=== PATIENT | male | born 1955 | race Caucasian/White ===

== ENCOUNTER 2020-12-15 09:12 | Emergency (ER) | payer OTHER ==
[~2020-12-15] VITALS: Ht 172.7 cm; Wt 83.0 kg
[2020-12-15 09:14] VITALS: BP 164/81
[2020-12-15] MEDS ORDERED: FLUORESCEIN SOD 1 MG TEST STRIP RIGHTEYE ONE (10:00)
[2020-12-15] MEDS ORDERED: TETRACAINE HCL 0.5% OPTH(EYE) SOLN 4ML RIGHTEYE ONE (10:00)
== END 2020-12-15 11:27 | disposition home or self-care (01) ==
LOC: ER 09:12
DX: S05.01XA Injury of conjunctiva and corneal abrasion without foreign body, right eye, initial encounter (principal); X58.XXXA Exposure to other specified factors, initial encounter; Y93.89 Activity, other specified; Y92.89 Other specified places as the place of occurrence of the external cause; Y99.8 Other external cause status

== ENCOUNTER 2022-12-31 17:10 | Inpatient (IN) | payer OTHER ==
[~2022-12-31] VITALS: Ht 177.8 cm; Wt 92.0 kg
[2022-12-31 18:17] LABS: Basophils # (auto) 0.1 10 ^3/uL (0-0.2); Basophils % (auto) 0.7 % (0.0-2.0); Eosinophils # (auto) 0.1 10 ^3/uL (0-0.8); Eosinophils % (auto) 0.8 % (0.0-7.0); Hemoglobin 13.6 g/dL (13.5-17.5); Lymphocytes # (auto) 1.6 10 ^3/uL (0.4-5.4); Lymphocytes % (auto) 18.6 % (10.0-50.0); Mean Corpuscular Hemoglobin 27.5 pg (28.0-32.0); Mean Corpuscular Hgb Conc. 33.1 g/dL (32.0-36.0); Monocytes # (auto) 0.6 10 ^3/uL (0-1.3); Monocytes % (auto) 6.6 % (0.0-12.0); Neutrophils # (auto) 6.3 10 ^3/uL (1.6-8.6); Neutrophils % (auto) 73.3 % (37.0-80.0); Nucleated Red Blood Cells % 0.2 %; Red Blood Cells 4.95 10^6/uL (4.5-5.90); Red Cell Distribution Width 14.9 % (11.8-14.3); White Blood Cell 8.6 10^3/uL (4.4-10.8)
[2022-12-31 18:41] LABS: INR 1.23 (0.9-1.15); Partial Thromboplastin Time 30.5 sec (24.6-33.4)
[2022-12-31 18:45] LABS: Albumin 3.9 g/dL (3.4-5.0); BUN/Creatinine Ratio 18.7 (10.0-20.0); Calcium 9.5 mg/dL (8.5-10.1); Potassium 4.3 mmol/L (3.5-5.1)
[2022-12-31 18:48] LABS: Bilirubin, Total 0.7 mg/dL (0.2-1.0); Total Protein 7.3 g/dL (6.4-8.2)
[2022-12-31] MEDS ORDERED: HEPARIN SODIUM (PORCINE) 5000 UNITS/ML 1ML VIAL IV ONE (20:45)
[2022-12-31] MEDS ORDERED: ASPirin 325 MG TAB PO ONE (20:45)
[2022-12-31] MEDS ORDERED: FUROSEMIDE 20 MG/2 ML VIAL IV ONE (20:45)
[2022-12-31 21:41] LABS: INR 1.31 (0.9-1.15); Partial Thromboplastin Time 30.4 sec (24.6-33.4)
[2022-12-31 21:43] LABS: Basophils # (auto) 0 10 ^3/uL (0-0.2); Basophils % (auto) 0.5 % (0.0-2.0); Eosinophils # (auto) 0.1 10 ^3/uL (0-0.8); Eosinophils % (auto) 1.1 % (0.0-7.0); Hematocrit 38.4 % (41.0-53.0); Hemoglobin 12.6 g/dL (13.5-17.5); Lymphocytes # (auto) 2.1 10 ^3/uL (0.4-5.4); Lymphocytes % (auto) 23.5 % (10.0-50.0); Mean Corpuscular Hemoglobin 27.1 pg (28.0-32.0); Mean Corpuscular Hgb Conc. 32.7 g/dL (32.0-36.0); Monocytes # (auto) 0.7 10 ^3/uL (0-1.3); Monocytes % (auto) 7.5 % (0.0-12.0); Neutrophils # (auto) 6.2 10 ^3/uL (1.6-8.6); Neutrophils % (auto) 67.4 % (37.0-80.0); Nucleated Red Blood Cells % 0.1 %; Red Blood Cells 4.63 10^6/uL (4.5-5.90); Red Cell Distribution Width 15.1 % (11.8-14.3); White Blood Cell 9.1 10^3/uL (4.4-10.8)
[2023-01-01] MEDS: HEPARIN DRIP/D5W 100UNITS/ML 250 ML IV SCH ×4 (00:13→18:43)
[2023-01-01] MEDS ORDERED: HYDROcodone-ACET 5/325MG TAB PO PRN (00:45)
[2023-01-01] MEDS ORDERED: DEXTROSE (50%) 50ML SYRG IV PRN (00:45)
[2023-01-01] MEDS ORDERED: NITROGLYCERIN 0.4 MG SL TAB SL PRN (00:45)
[2023-01-01] MEDS ORDERED: ACETAMINOPHEN 325 MG TAB PO PRN (00:45)
[2023-01-01] MEDS ORDERED: MORPHINE SULFATE INJ 2 MG/ml SYRG IV PRN ×2 (00:45)
[2023-01-01] MEDS ORDERED: ONDANSETRON HCL 4 MG/2 ML VIAL IV PRN (00:45)
[2023-01-01] MEDS ORDERED: DOCUSATE SOD 100 MG CAP PO PRN (00:45)
[2023-01-01 01:06] LABS: Urine Bacteria NONE SEEN /hpf (None Seen); Urine Blood Negative /uL (Negative); Urine Specific Gravity 1.024 (1.001-1.035); Urine WBC <1 /hpf (0 - 3)
[2023-01-01 05:58] LABS: Basophils # (auto) 0.1 10 ^3/uL (0-0.2); Basophils % (auto) 0.6 % (0.0-2.0); Eosinophils # (auto) 0.1 10 ^3/uL (0-0.8); Eosinophils % (auto) 1.2 % (0.0-7.0); Hematocrit 40.4 % (41.0-53.0); Hemoglobin 13.4 g/dL (13.5-17.5); Lymphocytes # (auto) 1.6 10 ^3/uL (0.4-5.4); Lymphocytes % (auto) 15.6 % (10.0-50.0); Mean Corpuscular Hemoglobin 27.7 pg (28.0-32.0); Mean Corpuscular Hgb Conc. 33.2 g/dL (32.0-36.0); Mean Corpuscular Volume 83.2 fL (80.0-100.0); Monocytes # (auto) 0.7 10 ^3/uL (0-1.3); Monocytes % (auto) 6.5 % (0.0-12.0); Neutrophils # (auto) 8.1 10 ^3/uL (1.6-8.6); Neutrophils % (auto) 76.1 % (37.0-80.0); Nucleated Red Blood Cells % 0.2 %; Red Blood Cells 4.86 10^6/uL (4.5-5.90); Red Cell Distribution Width 14.8 % (11.8-14.3); White Blood Cell 10.6 10^3/uL (4.4-10.8)
[2023-01-01] MEDS: SODIUM CHLOR 0.9% PF (SALINE LOCK) 10ML VIAL/SYR IV SCH ×3 (06:00→22:00)
[2023-01-01 06:33] LABS: Potassium 4.5 mmol/L (3.5-5.1)
[2023-01-01 06:35] LABS: Albumin 3.6 g/dL (3.4-5.0); BUN/Creatinine Ratio 18.7 (10.0-20.0); Calcium 9.5 mg/dL (8.5-10.1)
[2023-01-01 06:53] LABS: Bilirubin, Total 0.8 mg/dL (0.2-1.0); Total Protein 7.3 g/dL (6.4-8.2)
[2023-01-01 07:00] LABS: INR 1.29 (0.9-1.15)
[2023-01-01] MEDS: ACCU-CHEK COMFORT CURVE STRIP VI SCH ×3 (07:11→17:27)
[2023-01-01] MEDS: InsuLIN REG 1unit/0.01ml Soln (100units/ml) SC SCH ×3 (07:13→17:33)
[2023-01-01] MEDS: ASPirin 81 mg TAB PO SCH (10:44)
[2023-01-01] MEDS: CARVEDILOL 3.125 MG TAB PO SCH (10:44)
[2023-01-01] MEDS: FUROSEMIDE 40 MG/4 ML VIAL IV SCH (10:44)
[2023-01-01 12:04] LABS: INR 1.26 (0.9-1.15); Partial Thromboplastin Time 58.5 sec (24.6-33.4)
[2023-01-01 18:21] LABS: INR 1.29 (0.9-1.15); Partial Thromboplastin Time 50.6 sec (24.6-33.4)
[2023-01-02] VITALS (13 sets, daily range): BP systolic 102–151; BP diastolic 58–94
[2023-01-02 00:22] LABS: INR 1.24 (0.9-1.15); Partial Thromboplastin Time 53.8 sec (24.6-33.4)
[2023-01-02] MEDS ORDERED: TEMAZEPAM 15 MG CAP PO ONE (00:25)
[2023-01-02] MEDS: InsuLIN REG 1unit/0.01ml Soln (100units/ml) SC SCH ×5 (00:36→21:22)
[2023-01-02] MEDS: CARVEDILOL 3.125 MG TAB PO SCH ×3 (00:36→23:24)
[2023-01-02] MEDS: ATORVASTATIN 20 MG TAB PO SCH ×2 (00:37→21:24)
[2023-01-02] MEDS: ACCU-CHEK COMFORT CURVE STRIP VI SCH ×5 (00:37→22:00)
[2023-01-02] MEDS: HEPARIN DRIP/D5W 100UNITS/ML 250 ML IV SCH (00:47)
[2023-01-02 05:11] LABS: Basophils # (auto) 0.1 10 ^3/uL (0-0.2); Basophils % (auto) 0.8 % (0.0-2.0); Eosinophils # (auto) 0.1 10 ^3/uL (0-0.8); Eosinophils % (auto) 1.1 % (0.0-7.0); Hematocrit 41.5 % (41.0-53.0); Lymphocytes # (auto) 2.1 10 ^3/uL (0.4-5.4); Mean Corpuscular Hemoglobin 27.7 pg (28.0-32.0); Mean Corpuscular Hgb Conc. 33.8 g/dL (32.0-36.0); Mean Corpuscular Volume 81.9 fL (80.0-100.0); Monocytes # (auto) 0.7 10 ^3/uL (0-1.3); Monocytes % (auto) 6.6 % (0.0-12.0); Neutrophils # (auto) 7.7 10 ^3/uL (1.6-8.6); Neutrophils % (auto) 71.5 % (37.0-80.0); Nucleated Red Blood Cells % 0.4 %; Red Blood Cells 5.07 10^6/uL (4.5-5.90); Red Cell Distribution Width 14.6 % (11.8-14.3); White Blood Cell 10.8 10^3/uL (4.4-10.8)
[2023-01-02 05:40] LABS: Albumin 3.7 g/dL (3.4-5.0); Calcium 9.5 mg/dL (8.5-10.1)
[2023-01-02 05:42] LABS: BUN/Creatinine Ratio 22.1 (10.0-20.0)
[2023-01-02 05:44] LABS: Total Protein 7.6 g/dL (6.4-8.2)
[2023-01-02] MEDS: SODIUM CHLOR 0.9% PF (SALINE LOCK) 10ML VIAL/SYR IV SCH ×3 (06:27→22:00)
[2023-01-02 06:38] LABS: INR 1.23 (0.9-1.15); Partial Thromboplastin Time 28.8 sec (24.6-33.4)
[2023-01-02] MEDS ORDERED: HEPARIN SODIUM (PORCINE) 5000 UNITS/ML 1ML VIAL ONE ×2 (08:33→10:23)
[2023-01-02] MEDS ORDERED: HEPARIN SODIUM (PORCINE) 5000 UNITS/ML 1ML VIAL IV ONE (08:35)
[2023-01-02] MEDS ORDERED: HEPARIN DRIP/D5W 100UNITS/ML 250 ML IV SCH (09:00)
[2023-01-02] MEDS ORDERED: LIDOCAINE 2%HCL (LOCAL ANESTH.) INJ 10ml MDV ONE (10:09)
[2023-01-02] MEDS ORDERED: IODIXANOL 320MG/ML 100ML BTL IV ONE (10:09)
[2023-01-02] MEDS ORDERED: MIDAZOLAM HCL 2MG/2ML 2ml VIAL (1mg/ml) ONE (10:23)
[2023-01-02] MEDS ORDERED: fentaNYL CITRATE 100 MCG/2 ML VL ONE (10:23)
[2023-01-02] MEDS ORDERED: SODIUM CHL 0.9% 0 ML ONE (10:23)
[2023-01-02] MEDS ORDERED: VERAPAMIL 2.5MG/ML INJ 2ML VIAL IV ONE (10:23)
[2023-01-02] MEDS ORDERED: ANGIOMAX 250 MG VIAL IV ONE (10:23)
[2023-01-02] MEDS: FUROSEMIDE 40 MG/4 ML VIAL IV SCH (13:46)
[2023-01-02] MEDS: ASPirin 81 mg TAB PO SCH (13:54)
[2023-01-02] MEDS ORDERED: ATOR20TA50 (16:41)
[2023-01-02] MEDS ORDERED: PIOG1TAB37 PO (16:41)
[2023-01-02] MEDS ORDERED: METF-372 (16:41)
[2023-01-02] MEDS ORDERED: BENA20TA14 (16:41)
[2023-01-02] MEDS ORDERED: INSU32MI SC (16:41)
[2023-01-02] MEDS ORDERED: GABA-339 PO (16:41)
[2023-01-02] MEDS ORDERED: GLYB5TAB8 PO (16:41)
[2023-01-03] VITALS (8 sets, daily range): BP systolic 108–134; BP diastolic 72–90
[2023-01-03] MEDS: SODIUM CHLOR 0.9% PF (SALINE LOCK) 10ML VIAL/SYR IV SCH ×3 (05:12→22:55)
[2023-01-03 05:57] LABS: INR 1.24 (0.9-1.15); Partial Thromboplastin Time 29.2 sec (24.6-33.4)
[2023-01-03 06:06] LABS: BUN/Creatinine Ratio 23.8 (10.0-20.0); Calcium 9.1 mg/dL (8.5-10.1); Potassium 3.6 mmol/L (3.5-5.1)
[2023-01-03 06:08] LABS: Basophils # (auto) 0 10 ^3/uL (0-0.2); Basophils % (auto) 0.4 % (0.0-2.0); Eosinophils # (auto) 0.2 10 ^3/uL (0-0.8); Eosinophils % (auto) 1.9 % (0.0-7.0); Hematocrit 38.3 % (41.0-53.0); Hemoglobin 13.1 g/dL (13.5-17.5); Lymphocytes # (auto) 1.6 10 ^3/uL (0.4-5.4); Lymphocytes % (auto) 19.1 % (10.0-50.0); Mean Corpuscular Hgb Conc. 34.1 g/dL (32.0-36.0); Mean Corpuscular Volume 81.9 fL (80.0-100.0); Monocytes # (auto) 0.7 10 ^3/uL (0-1.3); Monocytes % (auto) 7.8 % (0.0-12.0); Neutrophils % (auto) 70.8 % (37.0-80.0); Nucleated Red Blood Cells % 0.1 %; Red Blood Cells 4.68 10^6/uL (4.5-5.90); Red Cell Distribution Width 15.1 % (11.8-14.3); White Blood Cell 8.5 10^3/uL (4.4-10.8)
[2023-01-03] MEDS: ACCU-CHEK COMFORT CURVE STRIP VI SCH ×4 (06:29→22:55)
[2023-01-03] MEDS: InsuLIN REG 1unit/0.01ml Soln (100units/ml) SC SCH ×4 (06:29→22:05)
[2023-01-03] MEDS ORDERED: VANCOMYCIN 1GM/250ML 250 ML IV ONE (09:00)
[2023-01-03] MEDS: FUROSEMIDE 40 MG/4 ML VIAL IV SCH (10:00)
[2023-01-03] MEDS ORDERED: LIDOCAINE 2%HCL (LOCAL ANESTH.) INJ 20ML MDV ONE (10:22)
[2023-01-03] MEDS ORDERED: VANCOMYCIN HCL 1000 MG VL ONE ×2 (10:25→10:29)
[2023-01-03] MEDS ORDERED: fentaNYL CITRATE 100 MCG/2 ML VL ONE (10:25)
[2023-01-03] MEDS ORDERED: MIDAZOLAM HCL 2MG/2ML 2ml VIAL (1mg/ml) ONE (10:26)
[2023-01-03] MEDS ORDERED: IOHEXOL 350 MG/ML 100ML IJ ONE (10:35)
[2023-01-03] MEDS: ASPirin 81 mg TAB PO SCH (13:30)
[2023-01-03] MEDS: CARVEDILOL 3.125 MG TAB PO SCH ×2 (13:30→22:55)
[2023-01-03] MEDS: ceFAZolin 1GM/50ML 50 ML IV SCH ×2 (13:30→19:45)
[2023-01-03] MEDS: ATORVASTATIN 20 MG TAB PO SCH (22:55)
[2023-01-04] MEDS: ceFAZolin 1GM/50ML 50 ML IV SCH ×3 (00:13→12:00)
[2023-01-04 01:01] VITALS: BP 126/65
[2023-01-04 05:27] VITALS: BP 122/74
[2023-01-04] MEDS: InsuLIN REG 1unit/0.01ml Soln (100units/ml) SC SCH ×2 (06:05→13:00)
[2023-01-04] MEDS: ACCU-CHEK COMFORT CURVE STRIP VI SCH ×2 (06:05→11:54)
[2023-01-04] MEDS: SODIUM CHLOR 0.9% PF (SALINE LOCK) 10ML VIAL/SYR IV SCH ×2 (06:06→14:15)
[2023-01-04 09:00] VITALS: BP 122/75
[2023-01-04] MEDS: ASPirin 81 mg TAB PO SCH (09:47)
[2023-01-04] MEDS: CARVEDILOL 3.125 MG TAB PO SCH (09:49)
[2023-01-04] MEDS: FUROSEMIDE 40 MG/4 ML VIAL IV SCH (09:50)
[2023-01-04] MEDS ORDERED: CAR3125T PO (11:07)
[2023-01-04] MEDS ORDERED: FURO1TAB31 PO (11:07)
[2023-01-04] MEDS ORDERED: DOXY-340 PO (11:09)
[2023-01-04] MEDS ORDERED: ASPI1TAB20 PO (11:09)
[2023-01-04 12:15] VITALS: BP 122/75
[2023-01-04 13:00] VITALS: BP 138/67
[2023-01-04] MEDS ORDERED: VANCOMYCIN 1GM/250ML 250 ML IV ONE (13:00)
== END 2023-01-04 14:11 | disposition home or self-care (01) | DRG 223 ==
LOC: ER 17:10 → TELE 01-01 00:44 → TELE-WESTW 01-02 16:16
PROVIDERS: ADMIT Nurse Practitioner Family; ATTEND Family Medicine
PROC: 4A023N7 Measurement of Cardiac Sampling and Pressure, Left Heart, Percutaneous Approach (ICD-10-PCS; 2023-01-02)
PROC: B211YZZ Fluoroscopy of Multiple Coronary Arteries using Other Contrast (ICD-10-PCS; 2023-01-02)
PROC: B215YZZ Fluoroscopy of Left Heart using Other Contrast (ICD-10-PCS; 2023-01-02)
PROC: 4A133B1 Monitoring of Arterial Pressure, Peripheral, Percutaneous Approach (ICD-10-PCS; 2023-01-02)
PROC: 4A133J1 Monitoring of Arterial Pulse, Peripheral, Percutaneous Approach (ICD-10-PCS; 2023-01-02)
PROC: 0JH608Z Insertion of Defibrillator Generator into Chest Subcutaneous Tissue and Fascia, Open Approach (ICD-10-PCS; principal; 2023-01-03)
PROC: 02HK3KZ Insertion of Defibrillator Lead into Right Ventricle, Percutaneous Approach (ICD-10-PCS; 2023-01-03)
PROC: B517YZZ Fluoroscopy of Left Subclavian Vein using Other Contrast (ICD-10-PCS; 2023-01-03)
DX: I21.4 Non-ST elevation (NSTEMI) myocardial infarction (principal); I42.0 Dilated cardiomyopathy; I11.0 Hypertensive heart disease with heart failure; E11.65 Type 2 diabetes mellitus with hyperglycemia; E78.00 Pure hypercholesterolemia, unspecified; I25.10 Atherosclerotic heart disease of native coronary artery without angina pectoris; I50.9 Heart failure, unspecified; I25.2 Old myocardial infarction
CPT/HCPCS: 33249; 36415; 71045; 80048; 80053; 81001; 82962; 83036; 83880; 84484; 85025; 85610; 85730; 86850; 86900; 86901; 93005; 93458; 96374; 96375; 99152; 99291; G0378; J0690; J1815; J2001; J2250; Q9967

== ENCOUNTER 2023-06-02 17:10 | Inpatient (IN) | payer OTHER ==
[~2023-06-02] VITALS: Ht 172.7 cm; Wt 85.1 kg
[~2023-06-02 17:10] MED LIST: ASPI1TAB20 PO; ATOR20TA50; BENA-36; CAR3125T PO; DOXY1CAP57 PO; FURO1TAB31 PO; GABA-339 PO; GLYB5TAB8 PO; INSU32MI SC; METF-372; PIOG1TAB37 PO
[2023-06-02 17:41] LABS: Basophils # (auto) 0.1 10 ^3/uL (0-0.2); Basophils % (auto) 0.7 % (0.0-2.0); Eosinophils # (auto) 0.1 10 ^3/uL (0-0.8); Eosinophils % (auto) 0.7 % (0.0-7.0); Hematocrit 37.8 % (41.0-53.0); Hemoglobin 12.6 g/dL (13.5-17.5); Lymphocytes # (auto) 1.6 10 ^3/uL (0.4-5.4); Mean Corpuscular Hemoglobin 28.3 pg (28.0-32.0); Mean Corpuscular Hgb Conc. 33.3 g/dL (32.0-36.0); Monocytes % (auto) 8.6 % (0.0-12.0); Neutrophils # (auto) 8.8 10 ^3/uL (1.6-8.6); Nucleated Red Blood Cells % 0.1 %; Red Blood Cells 4.44 10^6/uL (4.5-5.90); Red Cell Distribution Width 15.3 % (11.8-14.3); White Blood Cell 11.5 10^3/uL (4.4-10.8)
[2023-06-02 17:58] LABS: Alanine Aminotransferase 44 U/L (7-40); Albumin 4.4 g/dL (3.2-4.8); Alkaline Phosphatase 131 U/L (46-116); Anion Gap 9 (5-15); Aspartate Aminotransferase 26 U/L (13-40); BUN/Creatinine Ratio 13.4 (10.0-20.0); Blood Urea Nitrogen 17 mg/dL (9-23); Calcium 9.7 mg/dL (8.7-10.4); Carbon Dioxide 26 mmol/L (20-30); Chloride 103 mmol/L (98-107); Glucose 245 mg/dL (74-106); Magnesium 1.8 mg/dL (1.6-2.6); Potassium 4.2 mmol/L (3.5-5.1); Sodium 138 mmol/L (136-145); Total Protein 7.3 g/dL (5.7-8.2)
[2023-06-02 19:34] LABS: INR 1.31 (0.9-1.15); Partial Thromboplastin Time 30.4 SEC (24.5-34.5); Prothrombin Time 13.5 sec (9.3-11.8)
[2023-06-02 20:14] VITALS: PULSE 81; RESP 20; O2SAT 94
[2023-06-02] MEDS ORDERED: FUROSEMIDE 20 MG/2 ML VIAL IV ONE (20:15)
[2023-06-02] MEDS ORDERED: IOHEXOL 350 MG/ML 100ML IJ ONE (20:18)
[2023-06-02] MEDS ORDERED: ASPirin 325 MG TAB PO ONE (20:30)
[2023-06-02 21:46] LABS: COVID19 ANTIGEN SOFIA FIA NEGATIVE (NEGATIVE); Rapid Influenza A Negative (Negative); Rapid Influenza B Negative (Negative)
[2023-06-02] MEDS ORDERED: MORPHINE SULFATE INJ 2 MG/ml SYRG IV PRN (22:30)
[2023-06-02] MEDS ORDERED: NITROGLYCERIN 0.4 MG SL TAB SL PRN (22:30)
[2023-06-02 22:43] LABS: Amphetamine Screen, Urine Neg (NEGATIVE); Barbiturate Scree,Urine Neg (NEGATIVE); Benzodiazephine Screen, Urine Neg (NEGATIVE); Cocaine Screen, Urine Neg (NEGATIVE)
[2023-06-02 22:44] LABS: Cannabinoid Screen, Urine Neg (NEGATIVE); Opiate Scree,Urine Neg (NEGATIVE); Phencyclidine Screen, Urine Neg (NEGATIVE)
[2023-06-02] MEDS ORDERED: ONDANSETRON HCL 4 MG/2 ML VIAL IV PRN (23:00)
[2023-06-02] MEDS ORDERED: DEXTROSE (50%) 50ML SYRG IV ONE (23:00)
[2023-06-02 23:01] LABS: Urine Bacteria NONE SEEN /hpf (None Seen); Urine Blood Negative /uL (Negative); Urine Clarity Clear (Clear); Urine Color Colorless (Yellow); Urine Protein, UAD Negative (Negative); Urine Specific Gravity 1.022 (1.001-1.035); Urine Urobilinogen Normal (Negative); Urine WBC <1 /hpf (0 - 3); Urine pH 5.5 (5.0-8.0)
[2023-06-02 23:06] VITALS: BP 151/74; PULSE 71; RESP 20; O2SAT 99
[2023-06-02 23:33] VITALS: PULSE 63; RESP 18; O2SAT 99
[2023-06-02 23:42] VITALS: PULSE 60; RESP 18; O2SAT 100
[2023-06-02] MEDS: ALBUTEROL SULF 2.5 MG/0.5ML(0.5%) NEB SOLN NEB SCH (23:45)
[2023-06-02] MEDS: IPRATROPIUM BROM 0.5 MG/2.5ML INH SOL NEB SCH (23:45)
[2023-06-03] VITALS (12 sets, daily range): BP systolic 128–153; BP diastolic 72–90; PULSE 69–94; RESP 13–24; TEMP 97.5–97.8; O2SAT 92–100
[2023-06-03] MEDS: ALBUTEROL SULF 2.5 MG/0.5ML(0.5%) NEB SOLN NEB SCH ×3 (05:41→17:54)
[2023-06-03] MEDS: IPRATROPIUM BROM 0.5 MG/2.5ML INH SOL NEB SCH ×3 (05:41→17:54)
[2023-06-03] MEDS: FUROSEMIDE 40 MG/4 ML VIAL IV SCH ×3 (06:41→22:05)
[2023-06-03] MEDS ORDERED: ACCU-CHEK COMFORT CURVE STRIP VI ONE ×2 (07:00→22:00)
[2023-06-03] MEDS ORDERED: InsuLIN REG 1unit/0.01ml Soln (100units/ml) SC ONE (07:00)
[2023-06-03 07:07] LABS: Basophils # (auto) 0.1 10 ^3/uL (0-0.2); Basophils % (auto) 0.6 % (0.0-2.0); Eosinophils # (auto) 0.1 10 ^3/uL (0-0.8); Eosinophils % (auto) 1.1 % (0.0-7.0); Hematocrit 37.5 % (41.0-53.0); Hemoglobin 12.6 g/dL (13.5-17.5); Lymphocytes # (auto) 1.4 10 ^3/uL (0.4-5.4); Lymphocytes % (auto) 14.9 % (10.0-50.0); Mean Corpuscular Hemoglobin 28.6 pg (28.0-32.0); Mean Corpuscular Hgb Conc. 33.6 g/dL (32.0-36.0); Mean Corpuscular Volume 85.2 fL (80.0-100.0); Monocytes # (auto) 0.8 10 ^3/uL (0-1.3); Monocytes % (auto) 8.6 % (0.0-12.0); Neutrophils # (auto) 7.2 10 ^3/uL (1.6-8.6); Neutrophils % (auto) 74.8 % (37.0-80.0); Nucleated Red Blood Cells % 0.1 %; Red Cell Distribution Width 14.8 % (11.8-14.3); White Blood Cell 9.7 10^3/uL (4.4-10.8)
[2023-06-03 08:07] LABS: Alanine Aminotransferase 40 U/L (7-40); Albumin 4.4 g/dL (3.2-4.8); Alkaline Phosphatase 111 U/L (46-116); Aspartate Aminotransferase 23 U/L (13-40); BUN/Creatinine Ratio 15.6 (10.0-20.0); Bilirubin, Total 1.2 mg/dL (0.2-1.0); Blood Urea Nitrogen 17 mg/dL (9-23); Calcium 9.2 mg/dL (8.5-10.1); Carbon Dioxide 26 mmol/L (20-30); Glucose 235 mg/dL (74-106); Total Protein 7.2 g/dL (5.7-8.2)
[2023-06-03 08:46] LABS: Anion Gap 8 (5-15); Chloride 104 mmol/L (98-107); Potassium 3.8 mmol/L (3.5-5.1); Sodium 138 mmol/L (136-145)
[2023-06-03] MEDS ORDERED: INSU100I67 SC (16:09)
[2023-06-03] MEDS ORDERED: DEXTROSE (50%) 50ML SYRG IV ONE (18:30)
[2023-06-03] MEDS ORDERED: INSULIN LANTUS (GLARGINE) 1 /0.01ml (100units/ml) SC SCH (22:00)
[2023-06-04] VITALS (17 sets, daily range): BP systolic 120–144; BP diastolic 74–84; PULSE 58–98; RESP 14–20; TEMP 97.6–98.2; O2SAT 94–100
[2023-06-04] MEDS: ALBUTEROL SULF 2.5 MG/0.5ML(0.5%) NEB SOLN NEB SCH ×4 (00:06→20:21)
[2023-06-04] MEDS: IPRATROPIUM BROM 0.5 MG/2.5ML INH SOL NEB SCH ×4 (00:06→20:21)
[2023-06-04 05:44] LABS: Basophils # (auto) 0.1 10 ^3/uL (0-0.2); Basophils % (auto) 0.6 % (0.0-2.0); Eosinophils # (auto) 0.1 10 ^3/uL (0-0.8); Eosinophils % (auto) 1.1 % (0.0-7.0); Hematocrit 39.4 % (41.0-53.0); Hemoglobin 13.6 g/dL (13.5-17.5); Lymphocytes # (auto) 1.4 10 ^3/uL (0.4-5.4); Lymphocytes % (auto) 13.2 % (10.0-50.0); Mean Corpuscular Hgb Conc. 34.4 g/dL (32.0-36.0); Mean Corpuscular Volume 84.1 fL (80.0-100.0); Monocytes # (auto) 0.8 10 ^3/uL (0-1.3); Monocytes % (auto) 7.8 % (0.0-12.0); Neutrophils % (auto) 77.3 % (37.0-80.0); Red Blood Cells 4.68 10^6/uL (4.5-5.90); Red Cell Distribution Width 14.7 % (11.8-14.3); White Blood Cell 10.4 10^3/uL (4.4-10.8)
[2023-06-04 06:08] LABS: Alanine Aminotransferase 37 U/L (7-40); Albumin 4.5 g/dL (3.2-4.8); Alkaline Phosphatase 125 U/L (46-116); Anion Gap 9 (5-15); Aspartate Aminotransferase 16 U/L (13-40); BUN/Creatinine Ratio 14.7 (10.0-20.0); Blood Urea Nitrogen 19 mg/dL (9-23); Calcium 9.7 mg/dL (8.7-10.4); Carbon Dioxide 29 mmol/L (20-30); Chloride 99 mmol/L (98-107); Glucose 282 mg/dL (74-106); Magnesium 1.7 mg/dL (1.6-2.6); Potassium 3.5 mmol/L (3.5-5.1); Sodium 137 mmol/L (136-145)
[2023-06-04 06:09] LABS: Bilirubin, Total 1.1 mg/dL (0.2-1.0); Total Protein 7.5 g/dL (5.7-8.2)
[2023-06-04] MEDS: FUROSEMIDE 40 MG/4 ML VIAL IV SCH ×3 (06:12→21:47)
[2023-06-04] MEDS: ASPirin-EC 81 mg tab PO SCH (09:06)
[2023-06-04] MEDS ORDERED: DEXTROSE (50%) 50ML SYRG IV PRN (11:00)
[2023-06-04] MEDS: ACCU-CHEK COMFORT CURVE STRIP VI SCH ×3 (11:59→21:57)
[2023-06-04] MEDS: InsuLIN REG 1unit/0.01ml Soln (100units/ml) SC SCH ×2 (12:25→16:43)
[2023-06-04] MEDS: GABAPENTIN 100 MG CAP PO SCH ×2 (15:36→21:47)
[2023-06-04] MEDS: INSULIN LISPRO (HUMAN) 100 UNITS/ML ML SC SCH (17:50)
[2023-06-04] MEDS ORDERED: INSULIN LANTUS (GLARGINE) 1 /0.01ml (100units/ml) SC SCH (22:00)
[2023-06-04] MEDS ORDERED: InsuLIN REG 1unit/0.01ml Soln (100units/ml) SC SCH (22:00)
[2023-06-05] VITALS (10 sets, daily range): BP systolic 116–134; BP diastolic 68–84; PULSE 65–92; RESP 14–20; TEMP 36.8; O2SAT 96–100
[2023-06-05] MEDS: ALBUTEROL SULF 2.5 MG/0.5ML(0.5%) NEB SOLN NEB SCH ×2 (00:10→07:37)
[2023-06-05] MEDS: IPRATROPIUM BROM 0.5 MG/2.5ML INH SOL NEB SCH ×2 (00:10→07:37)
[2023-06-05] MEDS: GABAPENTIN 100 MG CAP PO SCH (06:46)
[2023-06-05] MEDS: FUROSEMIDE 40 MG/4 ML VIAL IV SCH (06:46)
[2023-06-05] MEDS: INSULIN LISPRO (HUMAN) 100 UNITS/ML ML SC SCH (06:46)
[2023-06-05] MEDS: ACCU-CHEK COMFORT CURVE STRIP VI SCH (06:47)
[2023-06-05] MEDS: InsuLIN REG 1unit/0.01ml Soln (100units/ml) SC SCH (06:47)
[2023-06-05] MEDS ORDERED: CAR3125T PO (08:05)
[2023-06-05] MEDS ORDERED: ASPI1TAB20 PO (08:05)
[2023-06-05] MEDS ORDERED: ATO40T PO (08:07)
[2023-06-05] MEDS ORDERED: BENA-36 PO (08:11)
[2023-06-05 08:29] LABS: Basophils # (auto) 0.1 10 ^3/uL (0-0.2); Monocytes # (auto) 0.8 10 ^3/uL (0-1.3); Nucleated Red Blood Cells % 0.1 %
[2023-06-05 08:31] LABS: Basophils % (auto) 0.8 % (0.0-2.0); Eosinophils # (auto) 0.3 10 ^3/uL (0-0.8); Eosinophils % (auto) 2.8 % (0.0-7.0); Hematocrit 42.5 % (41.0-53.0); Hemoglobin 14.5 g/dL (13.5-17.5); Lymphocytes # (auto) 1.6 10 ^3/uL (0.4-5.4); Lymphocytes % (auto) 16.1 % (10.0-50.0); Mean Corpuscular Hemoglobin 28.9 pg (28.0-32.0); Mean Corpuscular Hgb Conc. 34.1 g/dL (32.0-36.0); Mean Corpuscular Volume 84.7 fL (80.0-100.0); Monocytes % (auto) 8.1 % (0.0-12.0); Neutrophils # (auto) 7.4 10 ^3/uL (1.6-8.6); Neutrophils % (auto) 72.2 % (37.0-80.0); Red Blood Cells 5.02 10^6/uL (4.5-5.90); White Blood Cell 10.2 10^3/uL (4.4-10.8)
[2023-06-05] MEDS ORDERED: FURO1TAB31 PO (08:38)
[2023-06-05 08:59] LABS: Alanine Aminotransferase 35 U/L (7-40); Albumin 4.6 g/dL (3.2-4.8); Alkaline Phosphatase 108 U/L (46-116); Aspartate Aminotransferase 24 U/L (13-40); BUN/Creatinine Ratio 15.3 (10.0-20.0); Bilirubin, Total 1.1 mg/dL (0.2-1.0); Blood Urea Nitrogen 19 mg/dL (9-23); Carbon Dioxide 32 mmol/L (20-30); Total Protein 7.7 g/dL (5.7-8.2)
[2023-06-05 09:00] LABS: Glucose 150 mg/dL (74-106)
[2023-06-05] MEDS: ASPirin-EC 81 mg tab PO SCH (09:11)
[2023-06-05 09:56] LABS: Anion Gap 8 (5-15); Chloride 99 mmol/L (98-107); Potassium 3.3 mmol/L (3.5-5.1); Sodium 139 mmol/L (136-145)
[2023-06-05 10:03] LABS: Magnesium 1.7 mg/dL (1.6-2.6)
== END 2023-06-05 13:30 | disposition home or self-care (01) | DRG 291 ==
LOC: ER 17:10 → TELE 22:47 → TELE-EAST 06-03 14:12 → OBSVTOIN 06-05 10:22
PROVIDERS: ADMIT Internal Medicine; ATTEND Student in an Organized Health Care Education/Training Program
DX: I11.0 Hypertensive heart disease with heart failure (principal); I50.23 Acute on chronic systolic (congestive) heart failure; J96.00 Acute respiratory failure, unspecified whether with hypoxia or hypercapnia; J90 Pleural effusion, not elsewhere classified; Z20.822 Contact with and (suspected) exposure to COVID-19; E78.5 Hyperlipidemia, unspecified; I25.5 Ischemic cardiomyopathy; E11.65 Type 2 diabetes mellitus with hyperglycemia; I25.10 Atherosclerotic heart disease of native coronary artery without angina pectoris; I42.0 Dilated cardiomyopathy; Z95.810 Presence of automatic (implantable) cardiac defibrillator; Z79.84 Long term (current) use of oral hypoglycemic drugs; Z82.49 Family history of ischemic heart disease and other diseases of the circulatory system
CPT/HCPCS: 36415; 71045; 71275; 80053; 80307; 81001; 82962; 83605; 83735; 83880; 84484; 85025; 85379; 85610; 85730; 87040; 87426; 87804; 93005; 93306; 94640; G0378; J1815

== ENCOUNTER 2024-06-11 05:51 | Emergency (ER) | payer OTHER ==
[~2024-06-11] VITALS: Ht 172.7 cm; Wt 77.2 kg
[~2024-06-11 05:51] MED LIST changes: +ATOR-507 PO; -ATOR20TA50; -BENA-36; +BENA-36 PO; -DOXY1CAP57 PO; +INSU100I67 SC; -INSU32MI SC; -PIOG1TAB37 PO
[2024-06-11 07:10] LABS: Basophils # (auto) 0.1 10 ^3/uL (0-0.2); Eosinophils # (auto) 0.1 10 ^3/uL (0-0.8)
[2024-06-11 07:21] LABS: Eosinophils % (auto) 0.7 % (0.0-7.0); Hematocrit 40.2 % (41.0-53.0); Hemoglobin 13.8 g/dL (13.5-17.5); Lymphocytes # (auto) 0.9 10 ^3/uL (0.4-5.4); Lymphocytes % (auto) 9.1 % (10.0-50.0); Mean Corpuscular Hgb Conc. 34.3 g/dL (32.0-36.0); Mean Corpuscular Volume 81.7 fL (80.0-100.0); Monocytes # (auto) 0.5 10 ^3/uL (0-1.3); Monocytes % (auto) 5.2 % (0.0-12.0); Neutrophils # (auto) 8.4 10 ^3/uL (1.6-8.6); Platelet Count (auto) 473 10^3/uL (140-450); Red Blood Cells 4.92 10^6/uL (4.5-5.90); Red Cell Distribution Width 15.8 % (11.8-14.3)
[2024-06-11 07:28] LABS: Alanine Aminotransferase 49 U/L (7-40); Albumin 4.3 g/dL (3.2-4.8); Alkaline Phosphatase 169 U/L (46-116); Anion Gap 7 (5-15); Aspartate Aminotransferase 47 U/L (13-40); BUN/Creatinine Ratio 21.7 (10.0-20.0); Bilirubin, Total 0.8 mg/dL (0.2-1.0); Blood Urea Nitrogen 23 mg/dL (9-23); Calcium 9.5 mg/dL (8.7-10.4); Carbon Dioxide 26 mmol/L (20-31); Chloride 104 mmol/L (98-107); Glucose 241 mg/dL (74-106); Magnesium 1.9 mg/dL (1.6-2.6); Potassium 4.4 mmol/L (3.5-5.1); Sodium 137 mmol/L (136-145); Total Protein 6.9 g/dL (5.7-8.2)
[2024-06-11 08:58] VITALS: TEMP 97.9
[2024-06-11 10:00] VITALS: PULSE 77; RESP 17; O2SAT 99
[2024-06-11] MEDS: FUROSEMIDE 40 MG/4 ML VIAL IV ONE (10:03)
[2024-06-11] MEDS: FUROSEMIDE 20 MG/2 ML VIAL IV ONE (10:52)
[2024-06-11 11:05] VITALS: BP 135/82; PULSE 77; RESP 16; O2SAT 99
== END 2024-06-11 11:37 | disposition home or self-care (01) ==
LOC: ER 05:51
DX: I11.0 Hypertensive heart disease with heart failure (principal); I50.9 Heart failure, unspecified; E11.65 Type 2 diabetes mellitus with hyperglycemia; R07.89 Other chest pain; I42.0 Dilated cardiomyopathy; I25.5 Ischemic cardiomyopathy; Z95.0 Presence of cardiac pacemaker
CPT/HCPCS: 36415; 71045; 80053; 83735; 83880; 84484; 85025; 93005; 96374; 96376; 99285; J1940